=== PATIENT | female | born 1980 ===

== ENCOUNTER 2021-10-26 14:40 | Inpatient (IN) | payer SELFPAY ==
[2021-10-26 18:16] LABS: Hematocrit 38.2 % (30.3-42.9); Hemoglobin 12.8 gm/dl (10.1-14.3); Mean Corpuscular HGB Conc 34 % (30-34); Mean Corpuscular Volume 84 fl (79-97); Platelet Count 248 K/mm3 (140-440); Red Blood Count 4.52 M/mm3 (3.65-5.03); Red Cell Distribution Width 15.6 % (13.2-15.2)
[2021-10-26 18:20] LABS: Bilirubin,Urine NEG (Negative); Blood,Urine SM (Negative); Color,Urine Yellow (Yellow); Urobilinogen,Urine < 2.0 mg/dL (<2.0)
[2021-10-26 18:22] LABS: Bacteria,Urine 2+ /HPF (Negative); Mucus,Urine 2+ /HPF
[2021-10-26 18:39] LABS: Alanine Aminotransferase 11 units/L (7-56); Uric Acid 3.8 mg/dL (3.5-7.6)
[2021-10-26 22:11] LABS: Creatinine,Urine 224.5 mg/dL (0.1-20.0)
--- NOTE | 2021-10-26 23:34 | Ultrasound Report ---
US OB follow up INDICATION / CLINICAL INFORMATION: Elevated BP COMPARISON: None available. TECHNIQUE: Using a transcutaneous probe, multiple grayscale, color Doppler, and spectral Doppler imag es of the uterus and fetus were captured and stored. FINDINGS: Single cephalic fetus with heart rate of 143 bpm. The amniotic fluid index is within normal limits measuring 8.8 cm. Biparietal Diameter = 9.2 cm = 37, 1 weeks, days Head Circumference = 33.0 cm = 37, 4 weeks, days Abdominal Circumference = 33.1 cm = 37, 0 weeks, days Femur Length = 6.9 cm = 35, 4 weeks, days Average Ultrasound Age (AUA) = 36, 6 weeks, days. EDC 11/17/2021. Clinical estimate of gestational age based on LMP of 02/07/2021 is 37 weeks 2 days. Estimated weight = 3009 g. Growth percentile 42%. IMPRESSION: 1. Single living fetus with estimated weight as above, normal MONSTER. Signer Name: Travis Vázquez II, MD Signed: 10/26/2021 11:29 PM Workstation Name: [id number]
[2021-10-27] MEDS ORDERED: BUTORPHANOL 2 MG/1 ML INJ IV PRN (02:17)
[2021-10-27] MEDS ORDERED: ACETAMINOPHEN 325 MG TAB PO PRN (02:17)
[2021-10-27] MEDS ORDERED: ePHEDrine SULFATE 50 MG/1 ML INJ IV PRN (02:17)
[2021-10-27] MEDS ORDERED: CARBOPROST TROMETHAMINE 250 MCG/1 ML INJ IM PRN (02:17)
[2021-10-27] MEDS ORDERED: TERBUTALINE 1 MG/1 ML INJ SUB-Q PRN (02:17)
[2021-10-27] MEDS ORDERED: OXYTOCIN DRIP 30 UNITS/500 ML BAG IV SCH ×2 (03:00)
[2021-10-27] MEDS: LACTATED RINGERS 1,000 ML IV SCH ×2 (07:22→10:19)
--- NOTE | 2021-10-27 08:00 | History and Physical Report ---
History of Present Illness Date of examination: 10/27/21 Date of admission: 10/27/21 02:17 Chief complaint: Elevated blood pressure in the office and headache History of present illness: The patient is a 41-year-old at 37-3/7 weeks gestation who presents to OB triage reporting blood pressures >140/90 in the office and a headache that is worsened over the past 2 days. The patient has a history of chronic hypertension, and she is currently not on any oral antihypertensive medications. She was sent to OB triage to rule out preeclampsia. The patient denies vaginal bleeding. There is no leaking of fluid. There are irregular contractions. There is good movement. In OB triage, there were intermittent blood pressure >160/110. There was no pr oteinuria on the UPCR. In lieu of these symptoms of severe features, I am concerned that this patient has chronic hypertension with superimposed preeclampsia. Out of an abundance of caution, I recommend admission to the hospital for delivery. Past History Past Medical History: hypertension Past Surgical History: section (x2) Family/Genetic History: diabetes, hypertension Social history: no significant social history - Obstetrical History Expected Date of Delivery: 11/14/21 Actual Gestation: 37 Week(s) 3 Day(s) : 5 Para: 2 Hx # Term Pregnancies: 2 Spontaneous Abortions: 2 Medications and Allergies Allergies Allergy/AdvReac Type Severity Reaction Status Date / Time No Known Allergies Allergy Verified 10/26/21 17:47 Active Meds: Active Medications Acetaminophen (Acetaminophen 325 Mg Tab) 650 mg PO Q4H PRN PRN Reason: Pain, Mild (1-3) Butorphanol Tartrate (Butorphanol 2 Mg/1 Ml Inj) 2 mg IV Q2H PRN PRN Reason: Pain, Moderate(4-6) LABOR PAIN Carboprost Tromethamine (Carboprost Tromethamine 250 Mcg/1 Ml Inj) 250 mcg IM ONCE PRN PRN Reason: Uterine Bleeding Ephedrine Sulfate (Ephedrine Sulfate 50 Mg/1 Ml Inj) 10 mg IV Q2M PRN PRN Reason: Hypotension Fentanyl (Fentanyl 100 Mcg/2 Ml Inj) 100 mcg IV Q2H PRN PRN Reason: Pain,Severe (7-10) LABOR PAIN Oxytocin/Sodium Chloride (Pitocin/Ns 30 Unit/500ml) 30 units in 500 mls @ 2 mls/hr IV TITR NORA; Protocol Last Admin: 10/27/21 07:23 Dose: 1 mls/hr, 1 mls/hr Lactated Ringer's (Lactated Ringers) 1,000 mls @ 125 mls/hr IV DIRECT NORA Last Admin: 10/27/21 07:22 Dose: 125 mls/hr Oxytocin/Sodium Chloride (Pitocin/Ns 30 Unit/500ml) 30 units in 500 mls @ 40 mls/hr IV TITR NORA; Protocol Terbutaline Sulfate (Terbutaline 1 Mg/1 Ml Inj) 0.25 mg SUB-Q ONCE PRN PRN Reason: Hyperstimulation/Hypertonicity Review of Systems All systems: negative - Vital Signs Vital signs: Vital Signs Pulse BP Pulse Ox 84 119/79 97 10/26/21 17:41 10/26/21 17:41 10/26/21 17:41 Temp Pulse Resp BP Pulse Ox 97.7 F 68 16 101/61 100 10/27/21 07:39 10/27/21 07:50 10/27/21 07:39 10/27/21 07:50 10/27/21 07:40 - Physical Exam Breasts: Positive: normal Cardiovascular: Regular rate Lungs: Positive: Normal air movement Genitourinary (Female): Positive: normal external genitalia, normal perenium Vulva: both: normal Vagina: Positive: normal moisture Uterus: Positive: enlarged Adnexa: both: normal Anus/Rectum: Positive: normal perianal skin Extremities: Positive: normal Deep Tendon Reflex Grade: Normal +2 - Obstetrical FHR: category 1 Uterine Contraction Monitor Mode: External Cervical Dilatation: 0 Cervical Effacement Percentage: 0 station: -3 Uterine Contraction Pattern: Irregular Results Result Diagrams: 10/26/21 17:59 10/26/21 17:59 Abnormal lab results 10/26/21 10/26/21 10/26/21 Range/Units 17:59 17:59 18:00 RDW 15.6 H (13.2-15.2) % Creatinine 0.5 L (0.6-1.2) mg/dL Urine Creatinine 224.5 H (0.1-20.0) mg/dL Urine Total Protein 38 H (5-11.8) mg/dL All other labs normal. Assessment and Plan - Patient Problems (1) 37 weeks gestation of Current Visit: Yes Status: Acute Plan to address problem: care is up-to-date at [facility]. She had a normal 1 hour glucose tolerance test. She is GBS positive. (2) Chronic hypertension with superimposed pre-eclampsia Current Visit: Yes Status: Acute Plan to address problem: This patient has a history of chronic hypertension. Throughout the , the patient was not on any oral antihypertensive medications. She was on aspirin 81 mg daily for prevention of preeclampsia. During her office visit yesterday, the patient had blood pressures >140/90. She was sent to OB triage to rule out preeclampsia. There was no proteinuria on the UPCR. However there were intermittent blood pressures >160/110. The patient has a headache that is worsened over the past 2 days. In lieu of these symptoms of severe features, I am concerned that this patient has chronic hypertension with superimposed preeclampsia. Out of an abundance of caution, I recommend admission to the hospital for delivery. (3) Desires (vaginal after ) trial Current Visit: Yes Status: Acute Plan to address problem: This patient had 2 previous deliveries in [place]. The patient desires to attempt a trial of labor after (TOLAC). While the operative report unavailable, the patient was counseled that data from ACOG states that the likelihood of appears to be similar for patients with one versus two prior births and patients who had an unknown type of prior incision had a similar rate of uterine rupture as those with a known prior low transverse uterine incision (e.g 0.5% vs 0.7%). The patient understands that the estimated weight of this fetus is 3009 g (42nd %-ile). She understands that the risk of uterine rupture is less than 1%. She understands the risk of the possibility of emergent delivery. Voicing understanding of the risk, alternatives, and benefits, this patient wishes to attempt a TOLAC. (4) Previous delivery, antepartum Current Visit: Yes Status: Acute Plan to address problem: The patient had 2 previous deliveries. The first delivery was performed in [place] allegedly because "the baby was large". The second delivery was performed as an elective repeat delivery. (5) Group B Streptococcus carrier, +RV culture, currently Current Visit: Yes Status: Acute Plan to address problem: Start penicillin for intrapartum GBS prophylaxis. (6) Encounter for induction of labor Current Visit: Yes Status: Acute Plan to address problem: Ripen cervix with Cook's catheter and low-dose Pitocin. Consider addition of intravaginal IMN.
[2021-10-27] MEDS ORDERED: PENICILLIN G POTASSIUM 5 MIL.UNITS in SODIUM CHLORIDE 0.9% 50 ML IV ONE (08:30)
[2021-10-27] MEDS: fentaNYL 100 MCG/2 ML INJ IV PRN ×2 (08:41→12:26)
[2021-10-27] MEDS ORDERED: ONDANSETRON 4 MG/2 ML INJ ONE (09:42)
[2021-10-27] MEDS ORDERED: diphenhydrAMINE 50 MG/ML VIAL ONE (09:42)
--- NOTE | 2021-10-27 10:09 | Event Note ---
Date: 10/27/21 Called to bedside of pt by nurse after IV PCN med started and pt c/o severe burning to right arm and then in my presence pt vomited her breakfast of 700cc undigested food and stated everything started after med begun. Pt was breathing normal without erythema. Pt completed the 1 bag of PCN and will not give any more due to local sensitivity from burning, not severe allergy. pt with language barrier and automotive parts interpreter used however unclear the cause. 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 Will check EKG now and CXR now. Discussed with pt the induction of labor with previous c/s x2 undocumented scar and possible difficulty with pushing with enlarged heart history; pt states she was already counseled and desires TOLAC. Pt currently with barrientos bulb to 1liter of IVF tract hanging off the bed by previous provider. Pt encouraged to get epidural for pain relief with current intermittent ctx. No pitocin will be given with undocumented scar. FHR category I and ctx irregular. Pt will be allowed to do TOLAC, with declined at this time. All questions encouraged and answered.
--- NOTE | 2021-10-27 11:15 | XRay Report ---
XR chest 1V ap INDICATION / CLINICAL INFORMATION: h/o enlarged heart, now preg in labor COMPARISON: None available. FINDINGS: SUPPORT DEVICES: None. HEART / MEDIASTINUM: Cardiac silhouette is upper limits of normal. LUNGS / PLEURA: Lungs are clear. Costophrenic sulci are sharp. No pneumothorax. ADDITIONAL FINDINGS: No significant additional findings. IMPRESSION: 1. The cardiac silhouette is upper limits of normal. Signer Name: Gautam Parisi MD Signed: 10/27/2021 11:11 AM Workstation Name: [email or web address]
[2021-10-27] MEDS ORDERED: NalbUPHINE 10 MG/1 ML INJ IV PRN (12:03)
--- NOTE | 2021-10-27 12:09 | Event Note ---
Date: 10/27/21 pt evaluated and feeling fine without any more pain to right arm. pt still with intermittent contractions and nurse states pt already on pitocin from previous provider and pt agrees with augmentation. Will give IV pain med or epidural when desired. FHR remains category I. No ctxs seen on toco. Hopeful for vag delivery. Will closely monitor with pt choice.
[2021-10-27] MEDS ORDERED: PENICILLIN G POTASSIUM 2.5 MIL.UNITS in SODIUM CHLORIDE 0.9% 50 ML IV SCH (12:30)
[2021-10-27] MEDS ORDERED: MAGNESIUM SULFATE 4 GM/100 ML BAG IV ONE (14:00)
[2021-10-27] MEDS ORDERED: MAGNESIUM SULFATE 40GM/1000ML 40 GM/1,000 ML BAG IV SCH (14:00)
[2021-10-27] MEDS: VANCOMYCIN/NS 1 GM/250 ML 1 GM/250 ML BAG IV SCH (16:35)
--- NOTE | 2021-10-27 19:01 | Electrocardiograph Report ---
[facility] Test Date: 2021-10-27 Test Time: 11:27:10 Pat Name: SHIELA PEREZ Department: Room: 2007 04 Gender: F Tube Sorter: FLORENTIN : 1980 Requested By: MADALYN DONOVAN Order Number: [id number] Reading MD: Johnny Andino Measurements Intervals [place] Rate: 69 P: 13 NE: 94 QRS: 24 QRSD: 84 T: 9 QT: 412 QTc: 442 Interpretive Statements Sinus rhythm No previous ECG available for comparison Electronically Signed On 10-27-2021 19:00:45 EDT by Johnny Andino
[2021-10-28] MEDS: LACTATED RINGERS 1,000 ML IV SCH (00:45)
[2021-10-28] MEDS ORDERED: BUPIVACAINE/PF (0.5%) 5 MG/1 ML 10 ML VIAL INFILTRATI ONE (00:51)
[2021-10-28] MEDS ORDERED: ePHEDrine SULFATE 50 MG/1 ML INJ IV PRN (01:19)
[2021-10-28] MEDS ORDERED: fentaNYL-BUPIV 2 MCG/ML-0.125% 200 MCG/100 ML BAG EPIDURAL SCH ×2 (01:19→13:00)
[2021-10-28] MEDS ORDERED: NALOXONE 0.4 MG/1 ML INJ IV PRN ×3 (01:19→12:58)
--- NOTE | 2021-10-28 01:33 | Anesthesia Day of Surgery ---
Anesthesia Day of Surgery - Day of Surgery Patient Examined: Yes Patient H&P Reviewed: Yes Patient is NPO: Yes Beta Blockers: No Cardiac Clearance: No Pulmonary Clearance: No Koko's Test: N/A
--- NOTE | 2021-10-28 01:33 | Anesthesia Consultation ---
Anesthesia Consult and Med Hx Date of service: 10/28/21 - Airway Anesthetic Teeth Evaluation: Good ROM Head & Neck: Adequate Mental/Hyoid Distance: Adequate Mallampati Class: Class II Intubation Access Assessment: Probably Good - Pulmonary Exam CTA: Yes - Cardiac Exam Cardiac Exam: RRR - Pre-Operative Health Status ASA Pre-Surgery Classification: ASA2 Proposed Anesthetic Plan: Epidural - Pulmonary Hx Smoking: No Hx Asthma: No Hx Respiratory Symptoms: No SOB: No COPD: No Home Oxygen Therapy: No Hx Pneumonia: No Hx Sleep Apnea: No - Cardiovascular System Hx Hypertension: Yes (PIH) Hx Coronary Artery Disease: No Hx Heart Attack/AMI: No Hx Angina: No Hx Percutaneous Transluminal Coronary Angioplasty (PTCA): No Hx Cardia Arrhythmia: No Hx Pacemaker: No Hx Internal Defibrillator: No Hx Valvular Heart Disease: No Hx Heart Murmur: No Hx Peripheral Vascular Disease: No - Central Nervous System Hx Neuromuscular Disorder: No Hx Seizures: No CVA: No Hx Back Pain: No Hx Psychiatric Problems: No - Gastrointestinal Hx Ulcer: No Hx Gastroesophageal Reflux Disease: No - Endocrine Hx Renal Disease: No Hx End Stage Renal Disease: No Hx Cirrhosis: No Hx Liver Disease: No Hx Insulin Dependent Diabetes: No Hx Non-Insulin Dependent Diabetes: No Hx Thyroid Disease: No Hx Hypothyroidism: No Hx Hyperthyroidism: No - Hematic Hx Anemia: No Hx Sickle Cell Disease: No - Other Systems Hx Alcohol Use: No Hx Substance Use: No Hx Cancer: No Hx Obesity: No
--- NOTE | 2021-10-28 01:34 | Progress Note ---
Labor Epidural - Labor Epidural Start Time: 01:00 Stop Time: :06 Performed by:: ANUEL CHOWDHURY Procedure: Epidural Requested for Labor Pain. H&P and PT Chart reviewed and consent obtained. Time out performed and the procedure was explained, all questions answered. Patient was placed in a sitting position with monitors applied. The PTs back was prepped and draped in usual sterile fashion. The Skin was localized with 3 mL of 1% lidocaine at L3-L4. A 17-gauge Touhy epidural needle was advanced to ANUSHA with saline at 7 cm and no blood/CSF was noted via epidural needle. Epidural catheter was advanced to 12 cm. There was negative aspiration for blood and CSF in the catheter and negative response to a test dose of 3 ml 1.5% lidocaine w/ Epi and a sterile dressing was applied Patient tolerated the procedure well and there were no immediate complications noted.
--- NOTE | 2021-10-28 02:19 | Event Note ---
Date: 10/28/21 Cook's catheter fell out prior to shift change. EFM= category 1 Cervix is 6 cm dilated. Epidural placed by anesthesia team. Patient is comfortable. Membranes were artificially ruptured. Clear fluid noted.
[2021-10-28] MEDS: VANCOMYCIN/NS 1 GM/250 ML 1 GM/250 ML BAG IV SCH (04:26)
[2021-10-28] MEDS ORDERED: LACTATED RINGERS 1,000 ML IV SCH (10:00)
[2021-10-28] MEDS ORDERED: BICITRA ORAL LIQD 30ML PO SCH (10:30)
[2021-10-28] MEDS ORDERED: FAMOTIDINE 20 MG/2 ML INJ IV SCH (10:30)
[2021-10-28] MEDS ORDERED: ceFAZolin/Water 2 GM/20 ML 2 GM/20 ML SYRINGE IV NR (10:30)
[2021-10-28] MEDS ORDERED: METOCLOPRAMIDE 10 MG/2 ML INJ IV SCH (10:30)
[2021-10-28] MEDS ORDERED: OXYTOCIN DRIP 30 UNITS/500 ML BAG IV SCH ×2 (11:00→13:00)
--- NOTE | 2021-10-28 11:16 | Procedure Note ---
OB Delivery Note - Delivery Date of Delivery: 10/28/21 Surgeon: YARITZA MOON Estimated blood loss: other (Qbl 757ml) - Section Preop diagnosis: repeat Postop diagnosis: same section procedure: section, repeat low transverse Disposition: PACU Complications: none - Infant A at 1 minute: 8 at 5 minutes: 9 Infant Gender: Male (Weight 7 pounds 3 ounces)
--- NOTE | 2021-10-28 11:16 | Event Note ---
Date: 10/28/21 41-year-old -0-2-2 at 37+4 weeks who initially presented with elevated blood pressures. The patient was admitted for induction of labor. I have assumed care of the patient this a.m. The patient's history is significant for 2 prior deliveries. The patient reports having been delivered in [place] and her scar is undocumented. Her physical exam is significant for a vertical skin incision on the abdomen which she reports was from her previous delivery. Have discussed with the patient with a high school foreign language tutor my concerns of attempting a trial of labor without knowing the type of the patient has had in the past. It is my recommendation that we proceed with a repeat delivery. The risk and benefits of the procedure have the been discussed with the patient.
--- NOTE | 2021-10-28 11:18 | Operative Report ---
Operative Report Operative Report: Date of surgery: October 28, 2021 Preoperative diagnosis: at 37+4 weeks; previous delivery x2; undocumented scar; chronic hypertension Postoperative diagnosis: Same as above Procedure: Repeat low transverse delivery Surgeon: Ashley Clifford M.D. Anesthesia: Regional Estimated blood loss:Qbl 757ml Findings: Liveborn male with Apgars of 8 and 9 weight 7 pounds 3 ounces Indications: 41-year-old -0-2-2 at 37+4 weeks who was admitted for elevated blood pressures. The patient has a history of 2 prior deliveries. The patient has been counseled for a repeat delivery Procedure: The patient was taken to the operating room and given regional anesthesia without complication. She was prepped and draped in a normal sterile fashion. A Pfannenstiel skin incision was made down to layer the fascia which was nicked in the midline extended laterally with the Bovie cautery. The superior aspect of the rectus fascia was grasped with Perris clamps x2 and the rectus muscles off sharply. This was done in inferior fashion as well. The rectus muscle midline and peritoneum entered bluntly. The uterus was noted to be densely adherent to the anterior abdominal wall. An Alverto retractor could not be placed secondary to the adhesions. A bladder blade was placed. The vesicouterine peritoneum was then entered sharply with Metzenbaum scissors. A bladder flap was created digitally. A low transverse uterine incision was then made and extended digitally. There was clear fluid upon entry into the uterine cavity. The head was delivered through the incision with fundal pressure. The c ord was clamped and cut x2 and infant was passed off to pediatrics. The placenta was then manually extracted. The uterus could not be exteriorized. The uterine cavity was swept with a laparotomy sponge. The uterine incision was then closed in a running locked fashion with 0 Vicryl additional imbricating stitch was applied for 2 layer closure. The posterior cul-de-sac was then copiously irrigated. where the gutters were then irrigated. There was no bleeding noted coming from the rectus muscle with Surgicel was placed. The peritoneum was then reapproximated with 3-0 Vicryl incorporating the rectus muscle. The fascia was then closed with 0 Vicryl in a running fashion. The skin was then reapproximated with 3-0 Monocryl on a Vidal needle subcuticular fashion. Steri-Strips to place across the incision and a Crede procedures performed at the end of the surgery. A pressure dressing was applied to the incision. The surgery productive of a liveborn male infant with Apgars of 8 and 9 weight 7 pounds 3 ounces. The patient was taken to the recovery room in stable condition. All sponge laps and needle counts correct x2.
[2021-10-28] MEDS ORDERED: METHYLERGONOVINE MALEATE 0.2 MG/ML VIAL IM ONE (12:11)
[2021-10-28] MEDS ORDERED: ONDANSETRON 4 MG/2 ML INJ IV PRN (12:39)
[2021-10-28] MEDS ORDERED: MORPHINE 4 MG/1 ML INJ IV PRN (12:39)
[2021-10-28] MEDS ORDERED: HYDROmorphone 1 MG/1 ML INJ IV PRN ×2 (12:39)
[2021-10-28] MEDS ORDERED: PROMETHAZINE 25 MG RECT SUPP PR PRN (12:39)
[2021-10-28] MEDS ORDERED: PROMETHAZINE 25 MG TAB PO PRN (12:39)
[2021-10-28] MEDS ORDERED: WITCH HAZEL/ GLYCERIN PAD TP PRN (12:58)
[2021-10-28] MEDS ORDERED: LANOLIN/ZINC/DIMETHICONE (LANSINOH) 7 GM TP PRN (12:58)
[2021-10-28] MEDS ORDERED: KETOROLAC 30 MG/1 ML INJ IV PRN (12:59)
[2021-10-28] MEDS ORDERED: ACETAMINOPHEN 325 MG TAB PO PRN (12:59)
[2021-10-28] MEDS ORDERED: LACTATED RINGERS 1,000 ML ONE (17:01)
[2021-10-28] MEDS: MORPHINE 4 MG/1 ML INJ IV PRN (18:51)
[2021-10-29] MEDS: MORPHINE 4 MG/1 ML INJ IV PRN (00:56)
[2021-10-29 01:30] LABS: Hematocrit 27.8 % (30.3-42.9); Hemoglobin 9.4 gm/dl (10.1-14.3)
[2021-10-29] MEDS: oxyCODONE /ACETAMINOPHEN 5-325MG TAB PO PRN ×3 (05:10→20:26)
--- NOTE | 2021-10-29 10:53 | Post Anesthesia Evaluation ---
- Post Anesthesia Evaluation Patient Participated: Yes Airway Patent: Yes Stable Respiratory Function: Yes Nausea/Vomiting: No Temp > 96.8F: Yes Pain Manageable: Yes Adequeate Hydration: Yes Anesthesia Complications: No Block Receding Appropriately: Yes Patient on Ventilator: No
--- NOTE | 2021-10-29 11:29 | Progress Note ---
Assessment and Plan A: POD #1 CHTN with Superimposed Preeclampsia Asymptomatic Anemia P: Follow Routine PostOp Orders Ferrous Sulfate 325mg PO BID Subjective - Subjective Date of service: 10/29/21 Patient reports: appetite normal, voiding normally, pain well controlled, flatus, ambulating normally, other (Denies HAs, Visual changes, N&V, and Epigastic Pain) : doing well, bottle feeding Objective - Vital Signs Latest vital signs: Vital Signs Temp Pulse Resp BP BP Pulse Ox Pulse Ox 10/29/21 07:39 98.2 F 72 18 105/49 95 10/29/21 05:13 98.6 F 78 20 112/59 97 10/29/21 05:10 18 10/29/21 00:56 18 10/29/21 00:48 98.7 F 76 20 118/64 95 10/28/21 21:54 18 10/28/21 20:41 98.1 F 81 18 134/70 98 10/28/21 19:55 98 10/28/21 15:15 98.1 F 68 20 116/66 98 98 10/28/21 14:30 98.1 F 89 16 104/52 99 10/28/21 14:15 93 H 16 92/51 99 10/28/21 14:00 81 13 110/63 99 10/28/21 13:50 73 15 86/43 98 10/28/21 13:45 74 12 79/50 98 10/28/21 13:30 98.1 F 66 13 102/55 97 10/28/21 13:25 65 15 100/52 96 10/28/21 13:15 67 16 98/55 97 10/28/21 13:05 69 13 114/60 97 10/28/21 13:03 98.1 F 67 15 112/56 96 Intake and Output 10/28/21 10/29/21 10/29/21 22:59 06:59 14:59 Intake Total 360 360 Output Total 700 500 200 Balance -340 -140 -200 Intake: Oral 360 Intake, Free Water 360 Output: Urine 700 500 200 Indwelling Catheter 700 500 200 Other: Total, Intake Amount 120 Total, Output Amount 400 500 200 - Exam Breasts: Present: normal Cardiovascular: Present: Regular rate Lungs: Present: Clear to auscultation, Normal air movement Abdomen: Present: normal appearance, soft, normal bowel sounds Uterus: Present: normal, firm, fundal height above umbilicus Extremities: Present: normal Incision: Present: dry, dressed - Labs Labs: Abnormal lab results 10/29/21 Range/Units 00:58 Hgb 9.4 L D (10.1-14.3) gm/dl Hct 27.8 L D (30.3-42.9) %
[2021-10-29] MEDS: MAGNESIUM HYDROXIDE (MOM) ORAL LIQD UDC PO PRN (20:27)
[2021-10-29] MEDS: FERROUS SULFATE 325 MG TAB PO SCH (21:42)
[2021-10-29] MEDS: IBUPROFEN 600 MG TAB PO PRN (23:38)
[2021-10-30] MEDS: oxyCODONE /ACETAMINOPHEN 5-325MG TAB PO PRN ×2 (04:16→13:42)
[2021-10-30] MEDS: FERROUS SULFATE 325 MG TAB PO SCH ×2 (08:42→10:20)
--- NOTE | 2021-10-30 13:08 | Vascular Lab Report ---
DUPLEX DOPPLER LOWER EXTREMITY VEINS, BILATERAL INDICATION / CLINICAL INFORMATION: right lower extremity pain. Status post TECHNIQUE: Duplex doppler imaging was performed through the veins of both lower extremities using janna ous compression and other maneuvers. COMPARISON: None available. FINDINGS: RIGHT COMMON FEMORAL VEIN: Negative. RIGHT FEMORAL VEIN: Negative. RIGHT POPLITEAL VEIN: Negative. RIGHT CALF VEINS: Negative. LEFT COMMON FEMORAL VEIN: Negative. LEFT FEMORAL VEIN: Negative. LEFT POPLITEAL VEIN: Negative. LEFT CALF VEINS: Negative. ADDITIONAL FINDINGS: None. IMPRESSION: 1. No sonographic evidence for DVT in either lower extremity. Scribed by: Roslyn Alva RDMS, KALLIE, OUMAR Scribed: 10/30/2021 11:56 AM I have reviewed the images, agree with this report, and edited this report as needed. Signer Name: Dariel Miles MD Signed: 10/30/2021 1:04 PM Workstation Name: [email or web address]
--- NOTE | 2021-10-30 17:28 | Progress Note ---
Assessment and Plan A: POD # 2 - stable Doppler Study - Negative P: No further complaints of leg pain Discharge home in am Discharge instructions given Subjective - Subjective Date of service: 10/30/21 Principal diagnosis: POD # 2 - stable Patient reports: appetite normal [place]: doing well Objective - Vital Signs Latest vital signs: Vital Signs Temp Pulse Resp BP Pulse Ox Pulse Ox 10/30/21 08:49 98.1 F 79 18 129/72 96 10/30/21 04:16 20 10/30/21 00:29 97.6 F 73 18 117/63 96 10/29/21 23:38 20 10/29/21 20:30 99 10/29/21 20:26 18 Intake and Output 10/30/21 10/30/21 10/30/21 06:59 14:59 22:59 Intake Total 480 240 Balance 480 240 Intake: Oral 240 Intake, Free Water 480 Other: Total, Intake Amount 240 # Voids Void 2 1 - Exam Breasts: Present: deferred Cardiovascular: Present: Regular rate Lungs: Present: Clear to auscultation Abdomen: Present: soft Vulva: both: normal Uterus: Present: fundal height below umbilicus Extremities: Present: normal Deep Tendon Reflex Grade: Normal +2 Incision: Present: intact
--- NOTE | 2021-10-30 17:35 | Discharge Summary ---
Providers - Providers Date of Admission: 10/27/21 02:17 Date of discharge: 10/31/21 Attending physician: MADALYN DONOVAN Primary care physician: MADALYN DONOVAN Hospitalization Delivery: Procedure: repeat low transverse Incision: intact complications: none Discharge diagnosis: IUP at term delivered [place] baby: male Hospital course: Now BP WNL S/P Condition at discharge: Good Disposition: 01 HOME / SELF CARE / HOMELESS Plan - Provider Discharge Summary Activity: routine, no sex for 6 weeks, no strenuous exercise Diet: routine Instructions: routine Additional instructions: [] Smoking cessation referral if applicable(refer to patient education folder for contact #) [] Refer to [facility]'s [facility] Booklet Call your doctor immediately for: * Fever > 100.5 * Heavy vaginal bleeding ( >1 pad per hour) * Severe persistent headache * Shortness of breath * Reddened, hot, painful area to leg or breast * Drainage or odor from incision. * Keep incision clean and dry at all times and follow doctor's instructions regarding bathing/showering - Follow up plan Follow up: MADALYN DONOVAN MD [Primary Care Provider] - 14 Days
[2021-10-30] MEDS: IBUPROFEN 600 MG TAB PO PRN (22:45)
[2021-10-30] MEDS: MAGNESIUM HYDROXIDE (MOM) ORAL LIQD UDC PO PRN (22:45)
[2021-10-31] MEDS: FERROUS SULFATE 325 MG TAB PO SCH (00:28)
[2021-10-31] MEDS: IBUPROFEN 600 MG TAB PO PRN (10:25)
[2021-10-31 12:53] VITALS: BP 125/70
== END 2021-10-31 16:25 | disposition home or self-care (01) | DRG 788 ==
LOC: TRG 14:40 → APU 14:40 → TRG 10-27 02:17 → LD 10-27 02:17 → OB 10-28 14:39
PROVIDERS: ADMIT Obstetrics & Gynecology; ATTEND Obstetrics & Gynecology
PROC: 10D00Z1 Extraction of Products of Conception, Low, Open Approach (ICD-10-PCS; principal; 2021-10-28)
DX: O34.211 Maternal care for low transverse scar from previous cesarean delivery (principal); Z20.822 Contact with and (suspected) exposure to COVID-19; O13.4 Gestational [pregnancy-induced] hypertension without significant proteinuria, complicating childbirth; O14.94 Unspecified pre-eclampsia, complicating childbirth; O99.824 Streptococcus B carrier state complicating childbirth; Z37.0 Single live birth; Z3A.37 37 weeks gestation of pregnancy; O90.81 Anemia of the puerperium
CPT/HCPCS: 36415; 71045; 76816; 81001; 82565; 82570; 83615; 84156; 84450; 84460; 84550; 85014; 85018; 85027; 86850; 86900; 86901; 93005; 93970; G0378; J3490; J1200; J1885; J2270; J2300; J2405; J2540; J2590; J2765; J3010; J3370; J7120; U0003